=== PATIENT | female | born 1975 | race Caucasian/White ===

== ENCOUNTER 2018-12-22 13:35 | Emergency (ER) | payer OTHER, MEDICAID ==
[~2018-12-22] VITALS: Ht 165.1 cm; Wt 72.6 kg
[2018-12-22 13:57] LABS: ABSOLUTE BASOPHILS 0.1 thou/uL (0.0-0.2); ABSOLUTE EOSINOPHILS 0.1 thou/uL (0.0-0.7); ABSOLUTE LYMPHOCYTES 2.9 thou/uL (0.8-5.3); ABSOLUTE MONOCYTES 0.7 thou/uL (0.0-1.2); ABSOLUTE NEUTROPHILS 8.5 thou/uL (1.6-8.1); BASOPHILS 0.8 %; EOSINOPHILS 0.7 %; HEMATOCRIT 38.3 % (37.0-47.0); HEMOGLOBIN 12.6 gm/dL (12.0-15.0); LYMPHOCYTES 23.6 %; MCHC 32.9 g/dL (28.0-37.0); MCV 85.3 fL (80.0-100.0); MONOCYTES 5.4 %; MPV 9.8 fl. (7.2-11.1); NUCLEATED RBCS 0 /100WBC; POLYS 69.5 %; RBC 4.49 mil/uL (4.20-5.00); RDW-CV 14.4 % (10.5-14.5); WBC 12.3 thou/uL (4.0-11.0)
[2018-12-22 14:09] LABS: CALCIUM 8.7 mg/dL (8.5-10.1); CREATININE 0.9 mg/dL (0.6-1.3); POTASSIUM 3.4 mmol/L (3.5-5.1)
[2018-12-22 14:14] LABS: ALBUMIN 3.2 g/dL (3.4-5.0); TOTAL BILIRUBIN 0.2 mg/dL (<0.1-1.0); TOTAL PROTEIN 6.7 g/dL (6.4-8.2)
[2018-12-22 15:13] LABS: PLATELET COUNT* 242 thou/uL (150-400)
[2018-12-22 15:20] VITALS: BP 116/71
--- NOTE | 2018-12-22 17:31 | EKG ---
[place] [address] ELECTROCARDIOGRAM REPORT Name: IRAM SMILEY Room: [facility]#: [id number] Admission: 12/22/18 Attend Phys: Discharge: 12/22/18 Date of : 79 Report #: [id number] THIS REPORT FOR: //name// [facility] ED Test Date: 2018-12-22 Test Time: 13:43:42 Pat Name: IRAM SMILEY Department: Room: Gender: F Medical Records Manager: : [id number] Requested By: Dick Hamm Order Number: [id number] MD: Kaushik Love Measurements Intervals [place] Rate: 72 P: 72 MN: 150 QRS: 15 QRSD: 90 T: 57 QT: 383 QTc: 420 Interpretive Statements Sinus rhythm Low voltage, precordial leads Abnormal R-wave progression, early transition Baseline wander in lead(s) I,III,aVL No previous ECG available for comparison Electronically Signed On 12-22-2018 17:31:24 [employer] by Kaushik Love [email or web address] <ELECTRONICALLY SIGNED> By: Kaushik Love MD, [facility] 12/22/18 1731 1343 1343 Kaushik Love MD, [facility] /EPI
== END 2018-12-22 15:33 | disposition home or self-care (01) ==
LOC: M.ERS 13:35
PROVIDERS: Emergency Medicine
DX: R42 Dizziness and giddiness (principal); Z88.0 Allergy status to penicillin